=== PATIENT | male | born 1955 | race Caucasian/White ===

== ENCOUNTER → 2017-01-23 | Outpatient (CLI) | payer BC, OTHER | END | disposition home or self-care (01) | LOC: RAD 16:21 | PROVIDERS: ATTEND Internal Medicine Cardiovascular Disease | DX: R76.11 Nonspecific reaction to tuberculin skin test without active tuberculosis (principal) | CPT/HCPCS: 71010 ==

== ENCOUNTER 2017-06-17 15:48 | Outpatient (CLI) | payer BC, OTHER | END 2017-06-17 23:59 | disposition home or self-care (01) | LOC: XRAY 15:48 | PROVIDERS: ATTEND Internal Medicine Medical Oncology | DX: M26.601 Right temporomandibular joint disorder, unspecified (principal); M85.68 Other cyst of bone, other site | CPT/HCPCS: 70486 ==

== ENCOUNTER 2017-12-02 15:54 | Outpatient (CLI) | payer BC, OTHER ==
[2017-12-02 17:44] LABS: *BILIRUBIN,URIN NEGATIVE (NEGATIVE); *BLOOD, URINE NEGATIVE (NEGATIVE); *CLARITY,URINE CLEAR (CLEAR); *COLOR,URINE YELLOW (YELLOW); *KETONES,URINE NEGATIVE (NEGATIVE); *PROTEIN,URINE NEGATIVE (NEGATIVE); *UROBILINOGEN,URINE 0.2 E.U./dl (NORMAL); LEUKOCYTE ESTERASE ,URINE NEGATIVE (NEGATIVE); NITRITE, URINE NEGATIVE (NEGATIVE); PH,URINE 5.5 (5.0-8.0); UGLUCOSE NEGATIVE (NEGATIVE)
[2017-12-02 17:45] LABS: WBC,URINE NONE SEEN /HPF (0-3)
[2017-12-02 17:46] LABS: MUCUS,URINE FEW /LPF (0-FEW)
== END 2017-12-02 23:59 | disposition home or self-care (01) ==
LOC: LAB 15:54
DX: N40.1 Benign prostatic hyperplasia with lower urinary tract symptoms (principal)
CPT/HCPCS: 36415; 84153; 87086

== ENCOUNTER 2018-09-14 11:35 | Day surgery (SDC) | payer BC, OTHER ==
[2018-09-14] MEDS ORDERED: PROPOFOL 200 MG/20 ML BOTTLE IV ONE (11:36)
[2018-09-14] MEDS ORDERED: IV LACTATED RINGERS SOLUTION 1,000 ML BAG IV ONE (11:36)
[2018-09-14 12:13] LABS: *BILIRUBIN,URIN NEGATIVE (NEGATIVE); *BLOOD, URINE NEGATIVE (NEGATIVE); *CLARITY,URINE CLEAR (CLEAR); *COLOR,URINE YELLOW (YELLOW); *KETONES,URINE NEGATIVE (NEGATIVE); *UROBILINOGEN,URINE 0.2 E.U./dl (NORMAL); LEUKOCYTE ESTERASE ,URINE NEGATIVE (NEGATIVE); NITRITE, URINE NEGATIVE (NEGATIVE); PH,URINE 5.5 (5.0-8.0); UGLUCOSE NEGATIVE (NEGATIVE)
[2018-09-14 12:15] LABS: BACTERIA,URINE NONE SEEN /HPF (NONE SEEN); RBC,URINE 0-3 /HPF (0-3); SQUAMOUS EPITHELIAL CELL,UR FEW /HPF (NONE SEEN); WBC,URINE 0-3 /HPF (0-3)
[2018-09-14 12:19] LABS: BASOPHILS # (AUTO) 0.1 K/uL (0.0-8.0); BASOPHILS % (AUTO) 1.3 % (0.0-2.0); EOSINOPHILS # (AUTO) 0.2 K/uL (0.0-0.7); HEMATOCRIT 44.2 % (36.7-47.1); HEMOGLOBIN 15.1 g/dL (12.5-16.3); LYMPHOCYTES # (AUTO) 1.7 K/uL (20.0-40.0); LYMPHOCYTES % (AUTO) 23.3 % (20.5-51.5); MEAN CORPUSCULAR HEMOGLOBIN 30.8 uug (23.8-33.4); MEAN CORPUSCULAR HGB CONC 34 g/dL (32.5-36.3); MONOCYTES # (AUTO) 0.7 K/uL (2.0-10.0); MONOCYTES % (AUTO) 9.6 % (0.0-11.0); NEUTROPHILS # (AUTO) 4.5 K/uL (1.8-8.9); NEUTROPHILS % (AUTO) 62.8 % (38.5-71.5); PLATELET COUNT (AUTO) 235 K/uL (152-348); RED BLOOD CELL COUNT(AUTO) 4.91 MIL/uL (4.06-5.63); WHITE BLOOD COUNT (AUTO) 7.2 K/uL (3.6-10.2)
[2018-09-14 12:20] LABS: CREATININE 1.5 mg/dL (0.6-1.3)
[2018-09-14 12:26] LABS: BILIRUBIN,TOTAL 0.5 mg/dL (0.2-1.0); TOTAL PROTEIN, SERUM 8.4 g/dL (6.4-8.2)
[2018-09-14] MEDS ORDERED: FENTANYL CITRATE 100 MCG/2 ML AMPUL ONE (13:14)
== END 2018-09-14 14:41 | disposition home or self-care (01) ==
LOC: DS 11:35
PROVIDERS: ATTEND Internal Medicine Gastroenterology
DX: Z12.11 Encounter for screening for malignant neoplasm of colon (principal); D12.5 Benign neoplasm of sigmoid colon; K21.0 Gastro-esophageal reflux disease with esophagitis; K64.8 Other hemorrhoids; K57.30 Diverticulosis of large intestine without perforation or abscess without bleeding; K64.4 Residual hemorrhoidal skin tags; I10 Essential (primary) hypertension; E78.00 Pure hypercholesterolemia, unspecified; M19.90 Unspecified osteoarthritis, unspecified site; Z87.891 Personal history of nicotine dependence; Z79.899 Other long term (current) drug therapy
CPT/HCPCS: 36415; 43239; 45385; 71045; 80053; 81001; 85025; 85730; 88305; 88312; 88342; 93005; J3010; J7120 ×2; A4217; A4663; J3490

== ENCOUNTER 2019-09-29 16:03 | Outpatient (CLI) | payer BC, OTHER | END 2019-09-29 23:59 | disposition home or self-care (01) | LOC: LAB 16:03 | PROVIDERS: ATTEND Legal Medicine | DX: N40.0 Benign prostatic hyperplasia without lower urinary tract symptoms (principal) | CPT/HCPCS: 36415; 84153 ==

== ENCOUNTER 2020-02-08 16:10 | Emergency (ER) | payer OTHER ==
[~2020-02-08] VITALS: Ht 172.7 cm; Wt 72.6 kg
--- NOTE | 2020-02-08 16:31 | NUR ---
PT WAS EVALUATED BY DR QUILES. PT WAS D/C'd TO HOME. D/C INSTRUCTIONS GIVEN TO THE PT.
[2020-02-08 16:32] VITALS: BP 139/75
== END 2020-02-08 16:33 | disposition home or self-care (01) ==
LOC: ER 16:13
DX: Z11.59 Encounter for screening for other viral diseases (principal)
CPT/HCPCS: 99283; U0003; A4663

== ENCOUNTER 2021-02-22 15:37 | Outpatient (CLI) | payer BC, OTHER ==
[2021-02-22 16:50] LABS: THYROID STIMULATING HORMONE 2.827 mIU/mL (0.358-3.740)
== END 2021-02-22 23:59 | disposition home or self-care (01) ==
LOC: LAB 15:37
PROVIDERS: ATTEND Psychiatry & Neurology Neurology
DX: R53.1 Weakness (principal)
CPT/HCPCS: 36415; 84295; 84443; 84450; 84460; 86592

== ENCOUNTER → 2021-03-15 | Outpatient (CLI) | payer BC, OTHER ==
[2021-03-15 20:55] LABS: HEMATOCRIT 42.9 % (36.7-47.1); MEAN CORPUSCULAR HEMOGLOBIN 31.3 uug (23.8-33.4); PLATELET COUNT (AUTO) 243 K/uL (152-348)
[2021-03-15 21:00] LABS: *BILIRUBIN,URIN NEGATIVE (NEGATIVE); *BLOOD, URINE NEGATIVE (NEGATIVE); *CLARITY,URINE CLEAR (CLEAR); *COLOR,URINE YELLOW (YELLOW); *KETONES,URINE NEGATIVE (NEGATIVE); *UROBILINOGEN,URINE 0.2 E.U./dl (NORMAL); LEUKOCYTE ESTERASE ,URINE NEGATIVE (NEGATIVE); NITRITE, URINE NEGATIVE (NEGATIVE); PH,URINE 5.5 (5.0-8.0); UGLUCOSE NEGATIVE (NEGATIVE)
[2021-03-15 21:05] LABS: BILIRUBIN,TOTAL 0.5 mg/dL (0.2-1.0); CREATININE 1.7 mg/dL (0.6-1.3); POTASSIUM 4.5 mmol/L (3.5-5.1); TOTAL PROTEIN, SERUM 8.6 g/dL (6.4-8.2); URIC ACID 9.6 mg/dL (3.5-7.2)
[2021-03-15 21:30] LABS: THYROID STIMULATING HORMONE 2.899 mIU/mL (0.358-3.740)
== END | disposition home or self-care (01) ==
LOC: LAB 17:35
PROVIDERS: ATTEND Legal Medicine
DX: E03.9 Hypothyroidism, unspecified (principal); E78.5 Hyperlipidemia, unspecified; R53.1 Weakness; Z00.00 Encounter for general adult medical examination without abnormal findings
CPT/HCPCS: 82043; 82570; 82746; 83550; 84153; 84402; 84403; 84443; 84550; 85025; 85651; 87086

== ENCOUNTER 2021-05-23 15:25 | Outpatient (CLI) | payer BC, OTHER | END 2021-05-23 23:59 | disposition home or self-care (01) | LOC: US 15:25 | PROVIDERS: ATTEND Legal Medicine | DX: N28.1 Cyst of kidney, acquired (principal) | CPT/HCPCS: 76770 ==

== ENCOUNTER 2022-01-22 12:48 | Outpatient (CLI) | payer BC, OTHER | END 2022-01-22 23:59 | disposition home or self-care (01) | LOC: LAB 12:48 | PROVIDERS: ATTEND Legal Medicine | DX: M26.609 Unspecified temporomandibular joint disorder, unspecified side (principal); R51.9 Headache, unspecified | CPT/HCPCS: 70486 ==

== ENCOUNTER 2022-03-07 14:55 | Outpatient (CLI) | payer BC, OTHER ==
[2022-03-07 15:36] LABS: HEMATOCRIT 41.7 % (36.7-47.1); MEAN CORPUSCULAR HEMOGLOBIN 31.8 uug (23.8-33.4); MEAN CORPUSCULAR VOLUME 94.3 fL (73.0-96.2); PLATELET COUNT (AUTO) 241 K/uL (152-348)
[2022-03-07 15:48] LABS: *BILIRUBIN,URIN NEGATIVE (NEGATIVE); *BLOOD, URINE NEGATIVE (NEGATIVE); *CLARITY,URINE CLEAR (CLEAR); *COLOR,URINE YELLOW (YELLOW); *KETONES,URINE NEGATIVE (NEGATIVE); *UROBILINOGEN,URINE 0.2 E.U./dl (NORMAL); LEUKOCYTE ESTERASE ,URINE NEGATIVE (NEGATIVE); NITRITE, URINE NEGATIVE (NEGATIVE); UGLUCOSE NEGATIVE (NEGATIVE)
[2022-03-07 16:11] LABS: BILIRUBIN,TOTAL 0.4 mg/dL (0.2-1.0); CREATININE 1.6 mg/dL (0.6-1.3); POTASSIUM 4.3 mmol/L (3.5-5.1); TOTAL PROTEIN, SERUM 8.3 g/dL (6.4-8.2); URIC ACID 6.8 mg/dL (3.5-7.2)
[2022-03-07 16:35] LABS: THYROID STIMULATING HORMONE 2.514 mIU/mL (0.358-3.740)
[2022-03-08 08:06] LABS: *TESTOSTERONE, SERUM 317 ng/dL (264-916)
[2022-03-12 12:07] LABS: TEST, %FREE+WK BOUND 19.7 % (9.0-46.0); TEST, FREE+WK BOUND 62.4 ng/dL (40.0-250.0)
== END 2022-03-07 23:59 | disposition home or self-care (01) ==
LOC: LAB 14:55
PROVIDERS: ATTEND Legal Medicine
DX: Z00.00 Encounter for general adult medical examination without abnormal findings (principal); E55.9 Vitamin D deficiency, unspecified; E78.00 Pure hypercholesterolemia, unspecified; E11.22 Type 2 diabetes mellitus with diabetic chronic kidney disease; N18.9 Chronic kidney disease, unspecified; N40.0 Benign prostatic hyperplasia without lower urinary tract symptoms; D64.9 Anemia, unspecified
CPT/HCPCS: 36415; 82306; 82746; 83550; 84153; 84402; 84403; 84443; 84550; 85025

== ENCOUNTER 2022-03-17 13:09 | Outpatient (CLI) | payer BC, OTHER | END 2022-03-17 23:59 | disposition home or self-care (01) | LOC: RAD 13:09 | PROVIDERS: ATTEND Legal Medicine | DX: N28.1 Cyst of kidney, acquired (principal); N28.89 Other specified disorders of kidney and ureter | CPT/HCPCS: 76770 ==

== ENCOUNTER 2022-12-24 11:46 | Outpatient (CLI) | payer BC, OTHER ==
[2022-12-24 12:09] LABS: *BILIRUBIN,URIN NEGATIVE (NEGATIVE); *BLOOD, URINE NEGATIVE (NEGATIVE); *CLARITY,URINE CLEAR (CLEAR); *COLOR,URINE YELLOW (YELLOW); *KETONES,URINE NEGATIVE (NEGATIVE); *UROBILINOGEN,URINE 0.2 E.U./dl (NORMAL); LEUKOCYTE ESTERASE ,URINE NEGATIVE (NEGATIVE); NITRITE, URINE NEGATIVE (NEGATIVE); PH,URINE 5.5 (5.0-8.0); UGLUCOSE NEGATIVE (NEGATIVE)
[2022-12-24 12:11] LABS: HEMATOCRIT 40.4 % (36.7-47.1); MEAN CORPUSCULAR HEMOGLOBIN 31.2 uug (23.8-33.4); MEAN CORPUSCULAR VOLUME 93.4 fL (73.0-96.2); PLATELET COUNT (AUTO) 235 K/uL (152-348)
[2022-12-24 12:17] LABS: CREATININE 1.8 mg/dL (0.6-1.3); POTASSIUM 4.6 mmol/L (3.5-5.1)
== END 2022-12-24 23:59 | disposition home or self-care (01) ==
LOC: LAB 11:46
PROVIDERS: ATTEND Legal Medicine
DX: Z01.818 Encounter for other preprocedural examination (principal); M51.34 Other intervertebral disc degeneration, thoracic region; I70.0 Atherosclerosis of aorta
CPT/HCPCS: 36415; 71046; 85025; 85610; 85730

== ENCOUNTER 2024-06-23 14:56 | Emergency (ER) | payer BC, OTHER ==
[~2024-06-23] VITALS: Ht 172.7 cm; Wt 72.6 kg
[2024-06-23 15:49] LABS: BASOPHILS # (AUTO) 0.1 K/UL (0.0-0.2); BASOPHILS % (AUTO) 0.7 % (0.0-2.0); EOSINOPHILS % (AUTO) 0.2 % (0.0-7.0); HEMATOCRIT 34.8 % (36.7-47.1); HEMOGLOBIN 11.4 g/dL (12.5-16.3); LYMPHOCYTES % (AUTO) 6.6 % (20.5-51.5); MEAN CORPUSCULAR HEMOGLOBIN 30.8 uug (23.8-33.4); MEAN CORPUSCULAR HGB CONC 33 g/dL (32.5-36.3); MEAN CORPUSCULAR VOLUME 93.6 fL (73.0-96.2); MONOCYTES # (AUTO) 1.3 K/uL (0.1-1.30); MONOCYTES % (AUTO) 9.2 % (0.0-11.0); NEUTROPHILS # (AUTO) 12.2 K/uL (1.8-8.9); NEUTROPHILS % (AUTO) 83.3 % (38.5-71.5); PLATELET COUNT (AUTO) 437 K/uL (152-348); RED BLOOD CELL COUNT(AUTO) 3.72 MIL/uL (4.06-5.63); RED CELL DISTRIBUTION WIDTH 13.1 % (12.1-16.2); WHITE BLOOD COUNT (AUTO) 14.6 K/uL (3.6-10.2)
[2024-06-23 15:51] LABS: DIFFERENTIAL COMMENT 1
[2024-06-23 15:57] LABS: CALCIUM 9.4 mg/dL (8.5-10.1); CREATININE 1.5 mg/dL (0.6-1.3); POTASSIUM 4.4 mmol/L (3.5-5.1)
[2024-06-23 17:14] LABS: *BILIRUBIN,URIN NEGATIVE (NEGATIVE); *BLOOD, URINE NEGATIVE (NEGATIVE); *CLARITY,URINE CLEAR (CLEAR); *COLOR,URINE YELLOW (YELLOW); *KETONES,URINE NEGATIVE (NEGATIVE); *PROTEIN,URINE NEGATIVE (NEGATIVE); *UROBILINOGEN,URINE 0.2 E.U./dl (NORMAL); LEUKOCYTE ESTERASE ,URINE NEGATIVE (NEGATIVE); NITRITE, URINE NEGATIVE (NEGATIVE); PH,URINE 5.5 (5.0-8.0); UGLUCOSE NEGATIVE (NEGATIVE)
[2024-06-23] MEDS ORDERED: CEPH500C2 PO (17:57)
[2024-06-23] MEDS ORDERED: OXYC-128 PO (17:57)
[2024-06-23 18:28] VITALS: BP 123/71; O2SAT 97
== END 2024-06-23 18:09 | disposition home or self-care (01) ==
LOC: ER 14:56
DX: R55 Syncope and collapse (principal); R51.9 Headache, unspecified; Z79.899 Other long term (current) drug therapy; W18.30XA Fall on same level, unspecified, initial encounter; Y93.89 Activity, other specified; Y92.89 Other specified places as the place of occurrence of the external cause; Y99.8 Other external cause status
CPT/HCPCS: 36415; 70450; 72125; 85025; A4606; A4663